=== PATIENT | female | born 1985 | race Caucasian/White ===

== ENCOUNTER 2020-07-08 09:16 | Emergency (ER) | payer OTHER, SELFPAY ==
[2020-07-08 09:20] VITALS: BP 171/87; PULSE 94; RESP 16; TEMP 36.7; O2SAT 99; BMI 34.6
--- NOTE | 2020-07-08 09:30 | ED.GENADULT ---
HPI - General Adult General Chief complaint: Abdominal Pain Stated complaint: massive cramps, abdomen/sternum Time Seen by Provider: 07/08/20 09:19 Source: patient Mode of arrival: Ambulatory Limitations: no limitations History of Present Illness HPI narrative: Patient is a 35-year-old female here for evaluation of lower abdominal cramping and vaginal bleeding and also epigastric abdominal pain and cramping. She states that the lower abdominal cramping and bleeding has been going on for several weeks if not months. She has been seen by her primary doctor. She is not on any control medication. She is scheduled to get an ultrasound completed tomorrow. The upper abdominal discomfort and cramping started a couple weeks ago. This happened after she was in another state for a and after eating some food. This pain has been fairly consistent. She states that her vaginal bleeding is more like menstrual cycles. She has never had a sexually transmitted disease nor she concerned about that now. No diarrhea. No urinary symptoms. Has been 1 time in the past which resulted in a . No other abdominal surgeries. She is here because the discomfort is getting worse. Related Data Previous Rx's Medication Instructions Recorded cephalexin 500 mg PO BID 7 Days #14 cap 07/08/20 sucralfate [Carafate] 1 g PO QACHS #60 tab 07/08/20 Allergies Allergy/AdvReac Type Severity Reaction Status Date / Time No Known Drug Allergies Allergy Verified 07/08/20 09:30 Review of Systems Constitutional Constitutional: Denies fatigue, Denies fever(s) and Denies headache(s) Eyes Eyes: Denies change in vision ENT Ears, Nose, Mouth, and Throat: Denies headache(s) and Denies sore throat Cardiovascular Cardiovascular: Denies chest pain and Denies dyspnea Respiratory Respiratory: Denies dyspnea Gastrointestinal Gastrointestinal: Reports abdominal pain, Denies change in bowel habits, Denies constipation, Denies diarrhea, Reports nausea and Denies vomiting Genitourinary Genitourinary: Denies dysuria Genitourinary: Reports abnormal vaginal bleeding, Denies dysuria and Reports vaginal discharge Musculoskeletal Musculoskeletal: Denies arthralgias and Denies myalgias Integumentary/Breasts Skin/Breast: Denies rash Neurologic Neurologic: Denies behavioral changes and Denies headache(s) Psychiatric Psychiatric: Denies behavioral changes Endocrine Endocrine: Denies fatigue Hematologic/Lymphatic On Anticoagulants: No Allergic/Immunologic Allergic/Immunologic: Denies urticaria Patient History Medical History Healthy adult Social History Smoking Status: Current every day smoker Exam Initial Vital Signs Initial Vital Signs: Vital Signs Temperature 98.0 F 07/08/20 09:20 Pulse Rate 94 H 07/08/20 09:20 Respiratory Rate 16 07/08/20 09:20 Blood Pressure 171/87 H 07/08/20 09:20 Pulse Oximetry 99 07/08/20 09:20 Const General: cooperative and comfortable Limitations: mental status not altered HENMT Head: normal to inspection and normocephalic Eyes General: appearance normal, both eyes and all related structures Chest Chest: No tenderness Resp Effort & Inspection: normal respiratory effort Auscultation: clear to auscultation bilaterally Cardio Rate: regular rate Rhythm: regular rhythm GI Inspection: non-distended Palpation: soft and tender (Generalized tenderness) Back/Spine/Pelvis Back: No CVA tenderness Skin Lesions: no lesions Rashes: no rashes Neuro General: patient alert and patient awake Cognition: normal cognition Speech: speech normal Extrem General: normal to inspection and capillary refill normal Psych Appearance: grossly normal and well kempt Course Orders Ordered: ED Orders 07/08/20 09:35 US abdomen limited Stat US pelvic complete Stat 07/08/20 09:50 Complete Blood Count AUTO DIFF Stat Comprehensive Metabolic Panel Stat Lipase Stat Test Serum,Qual Stat 07/08/20 11:33 Urine Culture Stat Urine Microscopic Stat Vital Signs Vital signs: Vital Signs - 8 hr 07/08/20 09:20 Temperature 98.0 F Pulse Rate 94 H Respiratory Rate 16 Blood Pressure 171/87 H Pulse Oximetry 99 Medical Decision Making Lab Data Lab results reviewed: Yes I reviewed the patient's lab results. Result diagrams: 07/08/20 09:50 07/08/20 09:50 Labs: Lab Results 07/08/20 07/08/20 07/08/20 Range/Units 09:50 09:50 09:50 WBC 12.6 H (4.5-11.0) X10^3/uL RBC 4.70 (4.0-5.2) X10^6/uL Hgb 14.8 (12.0-16.0) g/dL Hct 44.0 (36-46) % MCV 93.7 (80-100) fL MCH 31.5 (26-34) PG MCHC 33.6 (30-36) % RDW 13.4 (11.6-14.8) % Plt Count 199 (150-400) X10^3/uL Neut % (Auto) 81.3 H (50-75) % Lymph % (Auto) 12.1 L (25-40) % [place] % (Auto) 5.1 (3-14) % Eos % (Auto) 1.1 L (2-4) % Baso % (Auto) 0.4 (0-2) % Neut # (Auto) 55231 H (4687-8311) /uL Lymph # (Auto) 1500 (8452-9990) /uL [place] # (Auto) 600 (0-900) /uL Eos # (Auto) 100 (0-450) /uL Baso # (Auto) 100 (0-100) /uL Sodium 139 (137-145) mmol/L Potassium 4.2 (3.4-5.1) mmol/L Chloride 111 H (98-107) mmol/L Carbon Dioxide 20 L (22-32) mmol/L BUN 21 H (7-17) mg/dL Creatinine 0.66 (0.52-1.04) mg/dL Estimated GFR > 60.0 (>60) mL/min BUN/Creatinine Ratio 31.8 H (6-22) Glucose 115 H (70-100) mg/dL Calcium 9.6 (8.4-10.2) mg/dL Total Bilirubin 0.2 (0.2-1.3) mg/dL AST 24 (14-36) IU/L ALT 14 (<35) IU/L Alkaline Phosphatase 59 (38-126) U/L Total Protein 7.2 (6.3-8.2) g/dL Albumin 4.3 (3.5-5.0) g/dL Globulin 2.9 (1.7-4.1) g/dL Albumin/Globulin Ratio 1.5 (1.0-2.8) Lipase 66 (23-300) U/L Serum , Qual Negative (Negative) Urine RBC (0-5/HPF) Urine WBC (0-5/HPF) Ur Squamous Epith Cells (0-5/HPF) Urine Bacteria (None) Ur Culture Indicated? 07/08/20 Range/Units 11:33 WBC (4.5-11.0) X10^3/uL RBC (4.0-5.2) X10^6/uL Hgb (12.0-16.0) g/dL Hct (36-46) % MCV (80-100) fL MCH (26-34) PG MCHC (30-36) % RDW (11.6-14.8) % Plt Count (150-400) X10^3/uL Neut % (Auto) (50-75) % Lymph % (Auto) (25-40) % [place] % (Auto) (3-14) % Eos % (Auto) (2-4) % Baso % (Auto) (0-2) % Neut # (Auto) (9366-1376) /uL Lymph # (Auto) (8292-5338) /uL [place] # (Auto) (0-900) /uL Eos # (Auto) (0-450) /uL Baso # (Auto) (0-100) /uL Sodium (137-145) mmol/L Potassium (3.4-5.1) mmol/L Chloride (98-107) mmol/L Carbon Dioxide (22-32) mmol/L BUN (7-17) mg/dL Creatinine (0.52-1.04) mg/dL Estimated GFR (>60) mL/min BUN/Creatinine Ratio (6-22) Glucose (70-100) mg/dL Calcium (8.4-10.2) mg/dL Total Bilirubin (0.2-1.3) mg/dL AST (14-36) IU/L ALT (<35) IU/L Alkaline Phosphatase (38-126) U/L Total Protein (6.3-8.2) g/dL Albumin (3.5-5.0) g/dL Globulin (1.7-4.1) g/dL Albumin/Globulin Ratio (1.0-2.8) Lipase (23-300) U/L Serum , Qual (Negative) Urine RBC 30-100/hpf H (0-5/HPF) Urine WBC 0-1/hpf (0-5/HPF) Ur Squamous Epith Cells 1-5 /hpf (0-5/HPF) Urine Bacteria Many (>30) H (None) Ur Culture Indicated? Specimen cultured Urine Dip Bedside Urine Glucose Negative Bedside Urine Bilirubin - Negative Bedside Urine Ketone - Negative Urine Specific [place] 1.025 Bedside Urine Occult Blood +++ Bedside Urine pH 6.5 Bedside Urine Protein - Negative Bedside Urine Urobilinogen - Negative Bedside Urine Nitrite + Positive Bedside Urine Leukocytes - Negative Esterase Point of care testing: Urine Dip Bedside Urine Glucose Negative Bedside Urine Bilirubin - Negative Bedside Urine Ketone - Negative Urine Specific [place] 1.025 Bedside Urine Occult Blood +++ Bedside Urine pH 6.5 Bedside Urine Protein - Negative Bedside Urine Urobilinogen - Negative Bedside Urine Nitrite + Positive Bedside Urine Leukocytes - Negative Esterase Imaging Data Pelvic ultrasound: Radiologist's Impression: [address] [id number] ReportSigned Patient: Marybeth Cox SMR#: [id number]: [id number]:[id number]/Sex: 35 / FDate of Service: 07/08/20Loc: EDAccession Number: [id number] Procedure: US pelvic complete Ordering Provider: Mitul Mccullough D.O. PROCEDURE: US PELVIC COMPLETE INDICATIONS: CRAMPING/HEAVY BLEEDING TECHNIQUE: Real-time scanning was performed of the pelvic organs, with image documentation. Additional endovaginal scanning was necessary due to incomplete visualization of the adnexal and endometrial structures by transabdominal scanning. COMPARISON: None. FINDINGS: Uterus: Uterus is anteverted and normal in size at 5.1 x 6.0 x 10.1 cm. The endometrium measures 6.5 mm in combined thickness. There is a left anterior intramural 1.9 cm rounded fibroid, and a right anterior intramural 2.0 x 1.8 x 2.0 cm fibroid. Ovaries: The right ovary measures 3.2 x 3.5 x 1.7 cm and the left measures 4.3 x 2.7 x 1.8 cm. At the left ovary there is a somewhat tubular structure 4.1 cm long with a axial dimension of 1.3 x 1.7 cm. This is considered most likely hydrosalpinx on the left, but could represent an unusual manifestation of para ovarian cyst. On the right there is a 1.8 x 1.8 x 1.2 cm mildly echogenic presume parovarian cyst. Other: No pathologic free abdominal or pelvic fluid. IMPRESSION: 2 uterine fibroids are seen. An endometrial mass is not found. Hydrosalpinx appears present on the left, and a right small isoechoic para ovarian cyst appears present. The ovaries themselves show no evidence of torsion or mass lesion. Dictated by: Jamel Rodrigez M.D. on 07/08/2020 at 11:38 Approved by: Jamel Rodrigez M.D. on 07/08/2020 at 11:42 Abdominal ultrasound: Radiologist's Impression: [address] [id number] ReportSigned Patient: Marybeth Cox [facility]#: [id number]: 1985Acct:[id number]/Sex: 35 / FDate of Service: 07/08/20Loc: EDAccession Number: [id number] Procedure: US abdomen limited Ordering Provider: Mitul Mccullough D.O. PROCEDURE: US ABDOMEN LIMITED INDICATIONS: RIGHT UPPER QUADRANT/ABDOMEN PAIN TECHNIQUE: Real-time focused scanning was performed of the abdomen, with image documentation. COMPARISON: None. FINDINGS: The liver is normal in craniocaudad length of 4 teen 0.1 cm. Normal echotexture is present. The main portal vein is normal in caliber. The gallbladder is normal as are the bile ducts with common duct measuring 6.1 mm. The pancreas visualized is normal. IMPRESSION: Source of right upper quadrant pain is not identified. No sign of gallstones or biliary distension. Dictated by: Jamel Rodrigez M.D. on 07/08/2020 at 11:43 Approved by: Jamel Rodrigez M.D. on 07/08/2020 at 11:44 [facility] Narrative Medical decision making narrative: Patient does not have urinary symptoms but does have a nitrite positive urine and a leukocytosis. I feel given this that we ought to treat her for urinary tract infection. Her pelvic ultrasound does show uterine fibroids and ovarian cysts. She does have a follow-up with a asw/asuw tactical air controller to discuss further evaluation and treatment of this. She does have epigastric pain. Her LFTs and lipase and right upper quadrant ultrasound her all unremarkable. Her symptoms do seem to get worse with eating. I have low suspicion for an acute surgical issue. Higher suspicion that this is reflux disease. She has not any medications for this. Will start her on medications for this as well. She was given return precautions and follow-up instructions. She expressed understanding and agreement. Discharge Plan Departure Patient Disposition: Home Clinical Impression: Urinary tract infection, Abdominal pain, Fibroid, uterine Instructions: DI for Uterine Fibroids, DI for Urinary Tract Infection (UTI), DI for Abdominal Pain-Adult Activity Restrictions/Additional Instructions: Recommend that you keep all of your scheduled medical appointments especially with your asw/asuw tactical air controller provider. Take the medications as directed. A urine culture was pending at the time of your discharge. We will contact you if we need to change any antibiotics. Return to the emergency department for any new or worsening symptoms. Prescriptions: New cephalexin 500 mg capsule 500 mg PO BID 7 Days Qty: 14 RF: 0 sucralfate [Carafate] 1 gram tablet 1 g PO QACHS Qty: 60 RF: 0
--- NOTE | 2020-07-08 09:35 | DI.US.S_ITS ---
PROCEDURE: US ABDOMEN LIMITED INDICATIONS: RIGHT UPPER QUADRANT/ABDOMEN PAIN TECHNIQUE: Real-time focused scanning was performed of the abdomen, with image documentation. COMPARISON: None. FINDINGS: The liver is normal in craniocaudad length of 4 teen 0.1 cm. Normal echotexture is present. The main portal vein is normal in caliber. The gallbladder is normal as are the bile ducts with common duct measuring 6.1 mm. The pancreas visualized is normal. IMPRESSION: Source of right upper quadrant pain is not identified. No sign of gallstones or biliary distension. Dictated by: Jamel Rodrigez M.D. on 07/08/2020 at 11:43 Approved by: Jamel Rodrigez M.D. on 07/08/2020 at 11:44
--- NOTE | 2020-07-08 09:35 | DI.US.S_ITS ---
PROCEDURE: US PELVIC COMPLETE INDICATIONS: CRAMPING/HEAVY BLEEDING TECHNIQUE: Real-time scanning was performed of the pelvic organs, with image documentation. Additional endovaginal scanning was necessary due to incomplete visualization of the adnexal and endometrial structures by transabdominal scanning. COMPARISON: None. FINDINGS: Uterus: Uterus is anteverted and normal in size at 5.1 x 6.0 x 10.1 cm. The endometrium measures 6.5 mm in combined thickness. There is a left anterior intramural 1.9 cm rounded fibroid, and a right anterior intramural 2.0 x 1.8 x 2.0 cm fibroid. Ovaries: The right ovary measures 3.2 x 3.5 x 1.7 cm and the left measures 4.3 x 2.7 x 1.8 cm. At the left ovary there is a somewhat tubular structure 4.1 cm long with a axial dimension of 1.3 x 1.7 cm. This is considered most likely hydrosalpinx on the left, but could represent an unusual manifestation of para ovarian cyst. On the right there is a 1.8 x 1.8 x 1.2 cm mildly echogenic presume parovarian cyst. Other: No pathologic free abdominal or pelvic fluid. IMPRESSION: 2 uterine fibroids are seen. An endometrial mass is not found. Hydrosalpinx appears present on the left, and a right small isoechoic para ovarian cyst appears present. The ovaries themselves show no evidence of torsion or mass lesion. Dictated by: Jamel Rodrigez M.D. on 07/08/2020 at 11:38 Approved by: Jamel Rodrigez M.D. on 07/08/2020 at 11:42
--- NOTE | 2020-07-08 09:55 | PC.NURSE ---
able to draw labs,unable to advance iv catheter.
[2020-07-08 10:01] LABS: Add Manual Diff / Slide Review NO; Basophils Absolute Auto 100 /uL (0-100); Basophils Percent Auto 0.4 % (0-2); Eosinophils Absolute Auto 100 /uL (0-450); Eosinophils Percent Auto 1.1 % (2-4); Hemoglobin 14.8 g/dL (12.0-16.0); Lymphocytes Absolute Auto 1500 /uL (1100-4500); Lymphocytes Percent Auto 12.1 % (25-40); Mean Corpuscular HGB Conc 33.6 % (30-36); Mean Corpuscular Hemoglobin 31.5 PG (26-34); Mean Corpuscular Volume 93.7 fL (80-100); Monocytes Absolute Auto 600 /uL (0-900); Monocytes Percent Auto 5.1 % (3-14); Neutrophils Absolute Auto 10300 /uL (1500-7000); Neutrophils Percent Auto 81.3 % (50-75); Platelet Count 199 X10^3/uL (150-400); Red Cell Distribution Width 13.4 % (11.6-14.8); White Blood Cell Count 12.6 X10^3/uL (4.5-11.0)
[2020-07-08 10:37] LABS: Alanine Aminotransferase 14 IU/L (<35); Albumin 4.3 g/dL (3.5-5.0); Albumin Globulin Ratio 1.5 (1.0-2.8); Alkaline Phosphatase 59 U/L (38-126); Aspartate Aminotransferase 24 IU/L (14-36); BUN Creatinine Ratio 31.8 (6-22); Bilirubin Total 0.2 mg/dL (0.2-1.3); Blood Urea Nitrogen 21 mg/dL (7-17); Calcium 9.6 mg/dL (8.4-10.2); Carbon Dioxide 20 mmol/L (22-32); Chloride 111 mmol/L (98-107); Estimated Glomerular Filt Rate > 60.0 mL/min (>60); Globulin 2.9 g/dL (1.7-4.1); Glucose 115 mg/dL (70-100); HEMOLYSIS < 15 (0-50); Lipase 66 U/L (23-300); Potassium 4.2 mmol/L (3.4-5.1); Sodium 139 mmol/L (137-145); Total Protein 7.2 g/dL (6.3-8.2)
[2020-07-08 10:43] LABS: Pregnancy Test Serum,Qual Negative (Negative)
[2020-07-08 11:45] VITALS: BP 107/68; PULSE 100; RESP 18; O2SAT 98
[2020-07-08 12:14] LABS: Bacteria Urine Many (>30); Culture Indicated Urine Specimen Cultured; RBC Urine 30-100/HPF (0-5/HPF); Squamous Epithelial Cell Urine 1-5 /HPF (0-5/HPF); WBC Urine 0-1/HPF (0-5/HPF)
[2020-07-08 12:45] VITALS: BP 118/90; PULSE 94; RESP 18; O2SAT 99
== END 2020-07-08 12:50 | disposition home or self-care (01) ==
PROVIDERS: Emergency Provider Emergency Medicine
DX: D25.1 Intramural leiomyoma of uterus (principal); N39.0 Urinary tract infection, site not specified; R11.0 Nausea; N89.8 Other specified noninflammatory disorders of vagina; R10.9 Unspecified abdominal pain
CPT/HCPCS: 36415; 76705; 76830; 76856; 80053; 81003; 81015; 83690; 84703; 85025; 87077; 87086; 87186; 99284

== ENCOUNTER → 2021-04-30 08:15 | Outpatient (CLI) | payer OTHER, SELFPAY ==
[2021-04-30 08:54] LABS: COVID19 -Nasal RAPID Negative (Negative)
== END ==
PROVIDERS: Visit Provider Obstetrics & Gynecology
DX: Z01.812 Encounter for preprocedural laboratory examination (principal); Z20.822 Contact with and (suspected) exposure to COVID-19
CPT/HCPCS: 87635

== ENCOUNTER 2021-05-01 08:45 | Day surgery (SDC) | payer OTHER, SELFPAY ==
[2021-04-29 13:35] VITALS: BMI 32.9
[2021-05-01] VITALS (10 sets, daily range): BP systolic 106–123; BP diastolic 50–85; PULSE 72–96; RESP 13–20; TEMP 36.1–37; O2SAT 92–99; BMI 32.9
--- NOTE | 2021-05-01 | PATH_ITS ---
[facility] Accession Number: [id number] . 01 Material submitted: . uterus - UTERUS AND BILATERAL FALLOPIAN TUBES . 02 Diagnosis: A. Uterus and Bilateral Fallopian Tubes, Hysterectomy and Bilateral Salpingectomy: Myometrium with multiple leiomyomas (up to 2.2 cm). Proliferative phase endometrium. 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 No evidence of endometrioid intraepithelial neoplasia, dysplasia, or malignancy. . COMMENT: Within one fallopian tube, focal features raised the possibility for endometriosis; ancillary studies are non-conclusive. In the presence of salpingitis isthmica nodosa, it is difficult to distinguish this entity from endometriosis and from lodged/shedded endometrial tissue in the fallopian tube. Clinical correlation is necessary. [facility] 05/06/2021 1340 Local . 02 Electronically signed: . Fela Lehman MD, Pathologist NPI- [id number] . 01 Gross description: . 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 Some putative attached and detached fallopian tube segments are seen; however, no fimbriae are identified. Fragmented surfaces of the morcellated uterus show numerous pale chavez whorled nodules measuring up to 2.2 cm in greatest dimension. Where seen, the endometrial mucosa measures up to 2 mm in thickness. No other masses or lesions are identified. No cervix is grossly identified. Automobile Sales Consultant sections are submitted as follows. . A1 - Endometrial cavity. A2 - Endometrium with adjacent probable leiomyoma. A3 - Probable leiomyoma. A4 - Additional probable leiomyomata. A5 - Putative fallopian tube cross-sections. A6 - Putative fallopian tube cross-sections. ([id number]) /MRV 05/04/2021 1149 Local . 02 Microscopic: . A CD10 immunostain is performed on block A5 in order to assess an area within the fallopian tube for endometriosis, with appropriately staining external controls. The area of interest is positive for CD10, however, this finding remains non-diagnostic, as non-specific staining is seen around portions of normal fallopian tube epithelium. . * This test was developed and its performance characteristics determined by [facility]. It has not been cleared or approved by the U.S. Food and Drug Administration. The FDA has determined that such clearance or approval is not necessary. This test is used for clinical purposes. It should not be regarded as investigational or for research. . 02 Pathologist provided ICD-10: D25.9 . 02 CPT . 571321, Z23841 Specimen Comment: A courtesy copy of this report has been sent to [facility] Performed at: 01 [facility] [address] [address], [place], [place] [id number] MD Valentin Newman MD Phone: [phone] Performed at: 02 [facility] [address] [place] [id number] MD Razia Hatch MD Phone: [phone]
[2021-05-01] MEDS: LACTATED RINGERS 1,000 ML 42 ML IV ×2 (09:27→12:00)
--- NOTE | 2021-05-01 09:28 | PM.PREOP ---
Pre-operative Note COVID-19 COVID-19 status: Negative Result date/Date tested (Pos, Neg/Pending): 04/30/21 Criteria for continued procedure: Non-surgical alternatives not available or appropriate per current SOC Interval Note History & Physical reviewed/Exam performed by Physician: Yes Changes to H&P: No
[2021-05-01] MEDS: CEFAZOLIN 2 GM/20 ML SYRINGE IV (10:10)
--- NOTE | 2021-05-01 10:44 | SUR.OPER ---
Lithotomy on padded OR bed. [place] Pad Positioner under torso. Head on pillow, arms padded and tucked at sides. Legs secured in padded yellow fins stirrups.
[2021-05-01] MEDS: BUPIVACAINE 0.5% (PF) 30 ML, EPINEPHrine 0.15 MG INJ (10:54)
[2021-05-01] MEDS: ROPIVACAINE 0.2% PF 2 MG/ML 10ML AMP 20 ML INJ ×2 (11:54→12:04)
--- NOTE | 2021-05-01 12:26 | PM.GYNOP.1 ---
Operative Date/Time/Diagnoses Date of procedure: 05/01/21 Time of procedure: 10:15 Pre-op diagnosis: Menometrorrhagia Uterine Fibroids Post-op diagnosis: other (Same as above; Extensive pelvic peritoneal adhesions, Bilateral hydrosalpinx) Procedure & Clinicians Procedure: Procedures Operation Date: 05/01/21 09:45 Actual Procedure Side Surgeon p Laparoscopic Supracervical Hysterectomy with bilateral salpingectomies, cystoscopy Allen Khoury MD Indications: Marybeth is a 35-year-old G 2 , LMP 03/11/2021 and ongoing who presents to discuss options for treatment of her nearly 4 year history of chaotic and disruptive menses.? Her history in this regard is exceptionally well documented in the medical records from [facility] in encounters from 06/2020 - 07/2020. In July 2020 she was counseled re: treatment options by [facility] [employer] [employer] and declined Mirena IUD but instead expressed a strong desire for definitive resolution of her MMR via hysterectomy.? She is finished with childbearing? The patient claims to have had a pap 3 years ago but no records support that claim.? The patient is a daily cigarette smoker therefore OC's have never been appropriate. She is not currently using contraception but sexual activity is only sporadic due to her frequent episodes of vaginal bleeding.? Pelvic US performed at [facility] on 07/08/2020 shows a slightly enlarged uterus with two anterior intramural myomas and normal ovaries bilaterally with small paraovarian cystic structures of uncertain consequence. [employer] ROS notable for heavy, irregular episodes of vaginal bleeding with clots, night-time overflows, pelvic heaviness, severe cramping, and other symptoms which are adversely affecting her life in many ways.Options for treatment reviewed again with the patient. She again declined the option of Mirena.? Endometrial ablation was offered and declined because no assurance of 100% efficacy could be offered and instead she wants to proceed with hysterectomy after counselling re alternatives, risks, benefits, and potential complications.? She is currently scheduled for the performance of a total laparoscopic hysterectomy with bilateral salpingectomy in the [facility] on 03/25/2021 and she presents today for her scheduled surgery. Surgeon: Allen Khoury Tonguer: Eleanor Arellano Anesthesia Type: General Operative Notes Findings: The uterus is upper limits of normal size and myomatous. The anterior cul-de-sac demonstrates changes consistent with prior section. Both fallopian tubes demonstrate niall-tubal adhesions and hydrosalpinx consistent with prior pelvic inflammatory disease. Dense tubo-ovarian adhesions on the left extending down into the cul-de-sac on the left pelvic sidewall and affecting the distal-most parametrial tissues on the left which precluded performance of TLH and laparoscopic supracervical hysterectomy performed instead for reasons of patient's safety. Dense and filmy adhesions also involved the posterior cul-de-sac. The remainder the abdomen and upper abdomen were normal to laparoscopic inspection. Following completion of the case cystoscopy showed normal mucosa throughout the bladder and vigorous spill of clear urine from each ureteral meatus Closure Type: primary Specimen(s): left tube, right tube and uterus Estimated blood loss (mL): 75 Blood products transfused: none Procedure in detail: With the patient under satisfactory general endotracheal anesthesia in the modified dorsal lithotomy position, the perineum, vagina, and abdomen were prepped and draped in the usual manner for TLH. A pre-surgical safety time-out was then taken in accordance with [facility] OR protocols. So catheter was inserted in the bladder and speculum inserted vaginally. The cervix was visualized and the endocervical canal dilated so as to permit introduction of a VCare manipulator with small cup. Attention was then turned to the umbilicus which was infiltrated with 0.5% Marcaine with epinephrine. A 5 mm vertical umbilical incision was made and the varies needle was used to insufflate the abdominal cavity. Once insufflated 5 mm trocar and sleeve was placed through the umbilical incision and 2 additional 5 mm ports were placed in the right and left mid quadrant. Using a 3 puncture technique the pelvis was visualized with the findings as noted previously. Sharp and blunt dissection was used to free of the distal tube on the right-hand side and it was from the ovary using the PK device. The dissection was carried across the mesosalpinx to the level of the round ligament on the right side which was coagulated and divided with the PK. The device was then used to dissect down lateral to the uterus on the right-hand side with lysis of the adhesions in the posterior cul-de-sac on the right side as well. Once the level of the bladder reflection was reached bladder flap was created starting on the right-hand side and the ascending uterine vessels coagulated and divided with the PK. Attention was then turned to the left adnexa which was much more scarred. The fallopian tube could not be from the ovary on the left-hand side because it ovary could not be visualized initially. Instead the proximal-most fallopian tube was coagulated and divided with PK device and the dissection was carried out lateral to the uterus on the left side all the way down to the level of the uterine vessels. Dense adhesions were encountered however and it appeared the ureter on the left side was drawn toward the cervix at that point. It was felt that dissection of the ureter beyond that point would be hazardous and unnecessary if a supracervical hysterectomy was performed instead of the TLH as planned and accordingly once sufficient skeletonization on both sides had been accomplished, a Violeta loop was utilized to amputate the corpus at the level of the upper endocervical canal. The endocervical canal was then coagulated with the PK device and hemostasis was excellent. Attention was then turned again to the left adnexa and the distal fallopian tube could then be identified and from the ovary on the left. The mesosalpinx was then coagulated and divided with the left fallopian tube fully excised. Both ovaries remain in-situ and the remainder the adhesions in the posterior cul-de-sac were lysed. A 4 cm mini-laparotomy was performed along the line of her prior scar and dissected down to the fascia. A 12 mm port was then inserted through the mini-laparotomy incision and an Endo-Catch bag was introduced so as to retrieve the uterus and fallopian tube specimens. A small Sy was then placed within the Endo-Catch bag and the specimen morcellated through the Sy. The fascia of the mini-laparotomy was then closed with 0 Vicryl in a running stitch and the abdomen was reinsufflated. Pelvis was reinspected with no areas of abnormality or bleeding noted and 20 cc of ropivacaine were then placed in the cul-de-sac. The pneumoperitoneum was then vented and the laparoscopic port incisions closed with 4-0 Monocryl using inverted interrupted stitches. The mini-laparotomy incision was closed in a similar manner and skin glue was placed on all incisions. Appropriate dressings were then applied and attention was turned to cystoscopy. A 70 degree cystoscope was then placed in the bladder and the bladder fully visualize 360?. Vigorous spillage of clear urine was seen coming from each ureteral orifice. The scope was then removed from the bladder and the patient having tolerated the procedure well was awakened from anesthesia transferred to PACU for a period of observation and recovery. Complications: none Post-operative Condition: stable Disposition: PACU Plan for aftercare: Routine postoperative care with follow-up appointment in 2 weeks.
--- NOTE | 2021-05-01 12:38 | SUR.PHASEI ---
Pt arrived, airway self maintained, 02 nasal cannula added.
--- NOTE | 2021-05-01 13:31 | SUR.PHASEI ---
Stable PACU stay, to OPD.
== END 2021-05-01 13:54 | disposition home or self-care (01) ==
LOC: OR 08:48 → AC 08:51
PROVIDERS: Referring Provider Obstetrics & Gynecology; Visit Provider Obstetrics & Gynecology
PROC: 0UT94ZL Resection of Uterus, Supracervical, Percutaneous Endoscopic Approach (ICD-10-PCS; CPT 58542; principal; 2021-05-01 09:45)
DX: D25.1 Intramural leiomyoma of uterus (principal); N70.11 Chronic salpingitis; N73.6 Female pelvic peritoneal adhesions (postinfective); F17.210 Nicotine dependence, cigarettes, uncomplicated; E66.9 Obesity, unspecified; Z68.32 Body mass index [BMI] 32.0-32.9, adult
CPT/HCPCS: 58542; J0171; J0690; J1100; J1170; J1885; J2250; J2405; J2704; J2795; J3010

== ENCOUNTER 2022-01-21 05:23 | Emergency (ER) | payer OTHER, SELFPAY ==
[2022-01-21 05:32] VITALS: BP 122/88; PULSE 100; RESP 18; TEMP 36.4; O2SAT 99; BMI 33.9
[2022-01-21 06:06] LABS: Add Manual Diff / Slide Review NO; Alanine Aminotransferase 18 IU/L (<35); Albumin 4.2 g/dL (3.5-5.0); Albumin Globulin Ratio 1.3 (1.0-2.8); Alkaline Phosphatase 54 U/L (38-126); Aspartate Aminotransferase 18 IU/L (14-36); BUN Creatinine Ratio 30.2 (6-22); Basophils Absolute Auto 0 /uL (0-100); Basophils Percent Auto 0.3 % (0-2); Bilirubin Total 0.4 mg/dL (0.2-1.3); Blood Urea Nitrogen 19 mg/dL (7-17); Carbon Dioxide 24 mmol/L (22-32); Chloride 106 mmol/L (98-107); Eosinophils Absolute Auto 100 /uL (0-450); Eosinophils Percent Auto 1.3 % (2-4); Estimated Glomerular Filt Rate > 60 mL/min (>60); Globulin 3.3 g/dL (1.7-4.1); Glucose 101 mg/dL (70-100); HEMOLYSIS < 15 (0-50); Hematocrit 43.6 % (36-46); Hemoglobin 14.9 g/dL (12.0-16.0); Lipase 39 U/L (23-300); Lymphocytes Absolute Auto 1000 /uL (1100-4500); Lymphocytes Percent Auto 20.8 % (25-40); Mean Corpuscular HGB Conc 34.3 % (30-36); Mean Corpuscular Volume 93.4 fL (80-100); Monocytes Absolute Auto 500 /uL (0-900); Monocytes Percent Auto 10.4 % (3-14); Neutrophils Absolute Auto 3300 /uL (1500-7000); Neutrophils Percent Auto 67.2 % (50-75); Platelet Count 165 X10^3/uL (150-400); Potassium 3.9 mmol/L (3.4-5.1); Red Blood Cell Count 4.67 X10^6/uL (4.0-5.2); Red Cell Distribution Width 12.8 % (11.6-14.8); Sodium 140 mmol/L (137-145); Total Protein 7.5 g/dL (6.3-8.2); White Blood Cell Count 4.9 X10^3/uL (4.5-11.0)
--- NOTE | 2022-01-21 06:19 | DI.CT.S_ITS ---
PROCEDURE: CT ABDOMEN PELVIS W CON INDICATIONS: Upper abd pain TECHNIQUE: After the administration of IV contrast, axial sections were acquired from the lung bases to the pubic symphysis. Coronal and sagittal reformats were performed. For radiation dose reduction, the following was used: automated exposure control, adjustment of mA and/or kV according to patient size. COMPARISON: [facility], ABDOMEN LIMITED, 07/08/2020, 10:01. [facility], PELVIC COMPLETE, 07/08/2020, 10:10. FINDINGS: Image quality: Excellent. Lung bases: Unremarkable. Tiny hiatal hernia. Heart: No significant findings. ABDOMEN: Liver: Several hepatic hypodensities are most likely cysts. Mild hepatic steatosis. Gallbladder: Unremarkable. Biliary ducts: Unremarkable. Pancreas: Unremarkable. Spleen: Unremarkable. Adrenal Glands: Bilateral small adrenal nodules measuring 1 cm. Kidneys and Ureters: There is a 2.4 x 3.5 cm solid mass in the lateral aspect of the superior pole of the right kidney, suspicious for renal cell carcinoma. No stones or hydronephrosis. Stomach and Bowel: Stomach, small bowel loops, and colon are unremarkable. Peritoneum: No abnormal intraperitoneal fluid. No free air. Ventral Wall: There is a small fat containing umbilical hernia. Abdominal Nodes: No retroperitoneal or mesenteric adenopathy by size criteria. There is a 0.7 cm retrocaval lymph node, within normal limits by size criteria. Vessels: Aorta and inferior vena cava are normal in size. PELVIS: Pelvic Organs: Reportedly, the patient has a history of hysterectomy. Prominent soft tissue in pelvis at midline is probably the remnant uterus/cervix. Ovaries are grossly normal. Bladder: Unremarkable. Pelvic Nodes: No enlarged lymph nodes. Miscellaneous: No inguinal hernias are seen. Bones: Unremarkable. IMPRESSION: 1. A 2.4 x 3.5 cm solid mass in the superior pole of the right kidney, suspicious for renal cell carcinoma. 2. Bilateral adrenal nodules. Adrenal protocol MRI or CT is suggested for follow-up evaluation. 3. Small hypodense nodules in liver are most likely cysts. 2. No lymphadenopathy in abdomen or pelvis. 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 Dictated by: Fawn Larson M.D. on 01/21/2022 at 8:25 Approved by: Fawn Larson M.D. on 01/21/2022 at 8:35
--- NOTE | 2022-01-21 06:21 | ED.ABDPAIN ---
HPI - Abdominal Pain <Arsalan Pierson MD - Last Filed: 01/30/22 08:32> General Chief Complaint: Abdominal Pain Stated Complaint: abd pain and toothache Time Seen by Provider: 01/21/22 06:10 Source: patient Mode of arrival: Ambulatory History of Present Illness HPI narrative: Patient brought in by a friend. Complaints 4 days of constant epigastric right upper quadrant pain. Sharp burning crampy achy. Does not radiate. Worse especially when trying to eat. Causes pain and vomiting. Patient still has her gallbladder. Denies . In addition patient complains of ongoing tooth pain for the past 1 month in the bottom left posterior tooth/molar. Patient has known history of dental caries to this tooth. Patient does smoke. Has appointment February 11 see tenderness. No trouble swallowing. No jaw swelling. No fever. Abdominal pain has been gone for 4 days. Related Data Home Medications Medication Instructions Recorded Confirmed ibuprofen 200 mg tablet 200 mg PO PRN PRN Pain (Scale 05/01/21 06/11/21 Score 1-3) Previous Rx's Medication Instructions Recorded tramadol 50 mg tablet 100 mg PO Q6H PRN pain #30 tabs 05/01/21 famotidine 40 mg tablet (Pepcid) 40 mg PO DAILY #30 tabs 01/21/22 sucralfate 1 gram tablet (Carafate) 1 g PO QAC #20 tabs 01/21/22 Allergies Allergy/AdvReac Type Severity Reaction Status Date / Time No Known Drug Allergies Allergy Verified 01/21/22 05:31 Review of Systems <Arsalan Pierson MD - Last Filed: 01/30/22 08:32> Review of Systems Narrative: GENERAL: Denies chills, fatigue, malaise, fever, sweats. HEENT: Denies sinus pain, ear pain, sore throat, positive dental pain RESPIRATORY: Denies dyspnea, cough CARDIOVASCULAR: Denies chest pain, palpitations GASTROINTESTINAL: Positive nausea, vomiting, abdominal pain : Denies dysuria, frequency, hematuria MUSCULOSKELETAL: denies muscle or bony pain SKIN: Denies rash, skin lesions NEUROLOGIC: Denies weakness, numbness ROS Unobtainable: All systems reviewed & are unremarkable except as noted in HPI and below Patient History <Arsalan Pierson MD - Last Filed: 01/30/22 08:32> Medical History Dysmenorrhea Healthy adult Intramural uterine fibroid Menometrorrhagia Severe dysmenorrhea Surgical History History of Social History household members: family Smoking Status: Current every day smoker Smoking Status: Current every day smoker alcohol intake frequency: holidays/special occasions only Substance Use Type: does not use Exam <Arsalan Pierson MD - Last Filed: 01/30/22 08:32> Narrative Exam Narrative: GENERAL: in no distress, not toxic not dyspneic HEAD: Normocephalic. EYES: Pupils equal round No scleral icterus. ENT: Mucous membranes moist. Tooth 17. On the left lower jaw on exam has extensive dental caries anteriorly. There is no gum erythema edema or palpable abscess. No jaw swelling. NECK: Trachea midline. CARDIOVASCULAR: Regular rate and rhythm without murmurs RESPIRATORY: Clear to auscultation. Breath sounds equal bilaterally. No wheezes, rales, or rhonchi. GASTROINTESTINAL: Abdomen soft, reproducible epigastric tenderness, bowel sounds are present. No peritoneal signs. Also there is right upper quadrant tenderness, positive Fan sign. No CVA tenderness. EXTREMITIES: No gross deformities. BACK: No flank tenderness. NEURO: AOx4. SKIN: Warm and dry PSYCH: Not anxious, is cooperative Initial Vital Signs Initial Vital Signs: Vital Signs Temperature 97.5 F L 01/21/22 05:32 Pulse Rate 100 H 01/21/22 05:32 Respiratory Rate 18 01/21/22 05:32 Blood Pressure 122/88 01/21/22 05:32 Pulse Oximetry 99 01/21/22 05:32 Oxygen Delivery Method 01/21/22 05:32 <Frannie Valdez DO - Last Filed: 01/21/22 18:44> Initial Vital Signs Initial Vital Signs: Vital Signs Temperature 97.5 F L 01/21/22 05:32 Pulse Rate 100 H 01/21/22 05:32 Respiratory Rate 18 01/21/22 05:32 Blood Pressure 122/88 01/21/22 05:32 Pulse Oximetry 99 01/21/22 05:32 Oxygen Delivery Method 01/21/22 05:32 Course <Arsalan Pierson MD - Last Filed: 01/30/22 08:32> Course Course Narrative: January 21, 2022 at 7:00 a.m., sign out to Dr. Valdez, CT scan imaging results are pending. Orders Ordered: Discontinued Medications Sodium Chloride (Normal Saline 0.9%) 1,000 mls @ 1,000 mls/hr IV BOLUS ONE Stop: 01/21/22 07:18 Last Infusion: 01/21/22 08:25 Dose: 0 mls/hr Documented By: Admin: 01/21/22 06:33 Dose: 1,000 mls/hr Documented By: KEVIN Morphine Sulfate (Morphine 4 Mg/Ml Inj) 4 mg IV NOW ONE Stop: 01/21/22 06:20 Last Admin: 01/21/22 06:33 Dose: 4 mg Documented By: KEVIN Ondansetron HCl (Ondansetron 4 Mg/2 Ml Inj) 4 mg IV NOW ONE Stop: 01/21/22 06:20 Last Admin: 01/21/22 06:33 Dose: 4 mg Documented By: KEVIN Vital Signs Vital signs: Vital Signs - 8 hr 01/21/22 05:32 Temperature 97.5 F L Pulse Rate 100 H Respiratory Rate 18 Blood Pressure 122/88 Pulse Oximetry 99 Oxygen Delivery Method Room Air <Frannie Valdez DO - Last Filed: 01/21/22 18:44> Orders Ordered: Discontinued Medications Sodium Chloride (Normal Saline 0.9%) 1,000 mls @ 1,000 mls/hr IV BOLUS ONE Stop: 01/21/22 07:18 Last Infusion: 01/21/22 08:25 Dose: 0 mls/hr Documented By: Admin: 01/21/22 06:33 Dose: 1,000 mls/hr Documented By: KEVIN Morphine Sulfate (Morphine 4 Mg/Ml Inj) 4 mg IV NOW ONE Stop: 01/21/22 06:20 Last Admin: 01/21/22 06:33 Dose: 4 mg Documented By: KEVIN Ondansetron HCl (Ondansetron 4 Mg/2 Ml Inj) 4 mg IV NOW ONE Stop: 01/21/22 06:20 Last Admin: 01/21/22 06:33 Dose: 4 mg Documented By: KEVIN Vital Signs Vital signs: Vital Signs - 8 hr 11/17/22 05:32 Temperature 97.5 F L Pulse Rate 100 H Respiratory Rate 18 Blood Pressure 122/88 Pulse Oximetry 99 Oxygen Delivery Method Room Air MDM - Abdominal Pain <Arsalan Pierson MD - Last Filed: 01/30/22 08:32> Lab Data Result diagrams: 01/21/22 05:45 01/21/22 05:45 Labs: Lab Results 01/21/22 01/21/22 01/21/22 Range/Units 05:45 05:45 05:45 WBC 4.9 (4.5-11.0) X10^3/uL RBC 4.67 (4.0-5.2) X10^6/uL Hgb 14.9 (12.0-16.0) g/dL Hct 43.6 (36-46) % MCV 93.4 (80-100) fL MCH 32.0 (26-34) PG MCHC 34.3 (30-36) % RDW 12.8 (11.6-14.8) % Plt Count 165 (150-400) X10^3/uL Neut % (Auto) 67.2 (50-75) % Lymph % (Auto) 20.8 L (25-40) % [place] % (Auto) 10.4 (3-14) % Eos % (Auto) 1.3 L (2-4) % Baso % (Auto) 0.3 (0-2) % Neut # (Auto) 3300 (7402-7703) /uL Lymph # (Auto) 1000 L (5737-0835) /uL [place] # (Auto) 500 (0-900) /uL Eos # (Auto) 100 (0-450) /uL Baso # (Auto) 0 (0-100) /uL Sodium 140 (137-145) mmol/L Potassium 3.9 (3.4-5.1) mmol/L Chloride 106 (98-107) mmol/L Carbon Dioxide 24 (22-32) mmol/L BUN 19 H (7-17) mg/dL Creatinine 0.63 (0.52-1.04) mg/dL Estimated GFR > 60 (>60) mL/min BUN/Creatinine Ratio 30.2 H (6-22) Glucose 101 H (70-100) mg/dL Calcium 9.0 (8.4-10.2) mg/dL Total Bilirubin 0.4 (0.2-1.3) mg/dL AST 18 (14-36) IU/L ALT 18 (<35) IU/L Alkaline Phosphatase 54 (38-126) U/L Total Protein 7.5 (6.3-8.2) g/dL Albumin 4.2 (3.5-5.0) g/dL Globulin 3.3 (1.7-4.1) g/dL Albumin/Globulin Ratio 1.3 (1.0-2.8) Lipase 39 (23-300) U/L Serum , Qual Negative (Negative) Urine RBC (0-5/HPF) Urine WBC (0-5/HPF) Ur Squamous Epith Cells (0-5/HPF) Urine Bacteria (None) Ur Culture Indicated? 01/21/22 Range/Units 08:25 WBC (4.5-11.0) X10^3/uL RBC (4.0-5.2) X10^6/uL Hgb (12.0-16.0) g/dL Hct (36-46) % MCV (80-100) fL MCH (26-34) PG MCHC (30-36) % RDW (11.6-14.8) % Plt Count (150-400) X10^3/uL Neut % (Auto) (50-75) % Lymph % (Auto) (25-40) % [place] % (Auto) (3-14) % Eos % (Auto) (2-4) % Baso % (Auto) (0-2) % Neut # (Auto) (5343-8543) /uL Lymph # (Auto) (8232-1150) /uL [place] # (Auto) (0-900) /uL Eos # (Auto) (0-450) /uL Baso # (Auto) (0-100) /uL Sodium (137-145) mmol/L Potassium (3.4-5.1) mmol/L Chloride (98-107) mmol/L Carbon Dioxide (22-32) mmol/L BUN (7-17) mg/dL Creatinine (0.52-1.04) mg/dL Estimated GFR (>60) mL/min BUN/Creatinine Ratio (6-22) Glucose (70-100) mg/dL Calcium (8.4-10.2) mg/dL Total Bilirubin (0.2-1.3) mg/dL AST (14-36) IU/L ALT (<35) IU/L Alkaline Phosphatase (38-126) U/L Total Protein (6.3-8.2) g/dL Albumin (3.5-5.0) g/dL Globulin (1.7-4.1) g/dL Albumin/Globulin Ratio (1.0-2.8) Lipase (23-300) U/L Serum , Qual (Negative) Urine RBC 0-1/hpf D (0-5/HPF) Urine WBC 0-1/hpf (0-5/HPF) Ur Squamous Epith Cells 5-10 /hpf H (0-5/HPF) Urine Bacteria Few (2-10) H (None) Ur Culture Indicated? Cult not indicated Point of care testing: Urine Dip Bedside Urine Glucose Negative Bedside Urine Bilirubin - Negative Bedside Urine Ketone +/- 5 Urine Specific Elizabeth 1.010 Bedside Urine Occult Blood +/- Bedside Urine pH 6.0 Bedside Urine Protein - Negative Bedside Urine Urobilinogen - Negative Bedside Urine Nitrite - Negative Bedside Urine Leukocytes - Negative Esterase <Frannie Valdez, DO - Last Filed: 01/21/22 18:44> Lab Data Labs: Lab Results 01/21/22 01/21/22 01/21/22 Range/Units 05:45 05:45 05:45 WBC 4.9 (4.5-11.0) X10^3/uL RBC 4.67 (4.0-5.2) X10^6/uL Hgb 14.9 (12.0-16.0) g/dL Hct 43.6 (36-46) % MCV 93.4 (80-100) fL MCH 32.0 (26-34) PG MCHC 34.3 (30-36) % RDW 12.8 (11.6-14.8) % Plt Count 165 (150-400) X10^3/uL Neut % (Auto) 67.2 (50-75) % Lymph % (Auto) 20.8 L (25-40) % [place] % (Auto) 10.4 (3-14) % Eos % (Auto) 1.3 L (2-4) % Baso % (Auto) 0.3 (0-2) % Neut # (Auto) 3300 (8775-1119) /uL Lymph # (Auto) 1000 L (1030-4501) /uL [place] # (Auto) 500 (0-900) /uL Eos # (Auto) 100 (0-450) /uL Baso # (Auto) 0 (0-100) /uL Sodium 140 (137-145) mmol/L Potassium 3.9 (3.4-5.1) mmol/L Chloride 106 (98-107) mmol/L Carbon Dioxide 24 (22-32) mmol/L BUN 19 H (7-17) mg/dL Creatinine 0.63 (0.52-1.04) mg/dL Estimated GFR > 60 (>60) mL/min BUN/Creatinine Ratio 30.2 H (6-22) Glucose 101 H (70-100) mg/dL Calcium 9.0 (8.4-10.2) mg/dL Total Bilirubin 0.4 (0.2-1.3) mg/dL AST 18 (14-36) IU/L ALT 18 (<35) IU/L Alkaline Phosphatase 54 (38-126) U/L Total Protein 7.5 (6.3-8.2) g/dL Albumin 4.2 (3.5-5.0) g/dL Globulin 3.3 (1.7-4.1) g/dL Albumin/Globulin Ratio 1.3 (1.0-2.8) Lipase 39 (23-300) U/L Serum , Qual Negative (Negative) Urine RBC (0-5/HPF) Urine WBC (0-5/HPF) Ur Squamous Epith Cells (0-5/HPF) Urine Bacteria (None) Ur Culture Indicated? 01/21/22 Range/Units 08:25 WBC (4.5-11.0) X10^3/uL RBC (4.0-5.2) X10^6/uL Hgb (12.0-16.0) g/dL Hct (36-46) % MCV (80-100) fL MCH (26-34) PG MCHC (30-36) % RDW (11.6-14.8) % Plt Count (150-400) X10^3/uL Neut % (Auto) (50-75) % Lymph % (Auto) (25-40) % [place] % (Auto) (3-14) % Eos % (Auto) (2-4) % Baso % (Auto) (0-2) % Neut # (Auto) (3243-9768) /uL Lymph # (Auto) (4675-9901) /uL [place] # (Auto) (0-900) /uL Eos # (Auto) (0-450) /uL Baso # (Auto) (0-100) /uL Sodium (137-145) mmol/L Potassium (3.4-5.1) mmol/L Chloride (98-107) mmol/L Carbon Dioxide (22-32) mmol/L BUN (7-17) mg/dL Creatinine (0.52-1.04) mg/dL Estimated GFR (>60) mL/min BUN/Creatinine Ratio (6-22) Glucose (70-100) mg/dL Calcium (8.4-10.2) mg/dL Total Bilirubin (0.2-1.3) mg/dL AST (14-36) IU/L ALT (<35) IU/L Alkaline Phosphatase (38-126) U/L Total Protein (6.3-8.2) g/dL Albumin (3.5-5.0) g/dL Globulin (1.7-4.1) g/dL Albumin/Globulin Ratio (1.0-2.8) Lipase (23-300) U/L Serum , Qual (Negative) Urine RBC 0-1/hpf D (0-5/HPF) Urine WBC 0-1/hpf (0-5/HPF) Ur Squamous Epith Cells 5-10 /hpf H (0-5/HPF) Urine Bacteria Few (2-10) H (None) Ur Culture Indicated? Cult not indicated Point of care testing: Urine Dip Bedside Urine Glucose Negative Bedside Urine Bilirubin - Negative Bedside Urine Ketone +/- 5 Urine Specific Elizabeth 1.010 Bedside Urine Occult Blood +/- Bedside Urine pH 6.0 Bedside Urine Protein - Negative Bedside Urine Urobilinogen - Negative Bedside Urine Nitrite - Negative Bedside Urine Leukocytes - Negative Esterase MDM Narrative Medical decision making narrative: Courtney 01/21/22: This is a 36-year-old female signed out to myself by Dr. Pierson, patient CBC and CMP is negative. Patient has had a toothache for prolonged period of time. She is also had epigastric pain which she states is worse when she eats. Sounds like ulcer or possible gastritis. Her CT shows a renal mass possible adrenal nodules which is unlikely cause of her pain but does require follow-up. Patient has surgery in the next month to have sounds like lysis of adhesions. Patient did not have urine as she has had hysterectomy. Patient is not having lower abdominal, flank pain. She noticed her urine was brownish today, shows blood, ketones but no clear infection. Discussed EGD would be helpful to evaluate for gastritis versus ulcer, needs follow-up as well as MR for the renal mass, adrenal nodules. Patient states she has follow-up. She is otherwise well-appearing and felt better after medications for her stomach. Discharge Plan Departure Patient Disposition: Home Clinical Impression: Mass of right kidney, Epigastric pain Instructions: DI for Epigastric Pain Activity Restrictions/Additional Instructions: Please follow-up for recheck of mass on your right kidney and adrenal nodules. Please call to set up follow-up in the next week. It is recommended that you follow-up for an MRI to further evaluate. Your urine does have some blood, this can be related to the mass in her kidney we will send it for micro and if there are signs of infection urine culture. If this is positive we will call you to initiate antibiotics but typically takes 2 days to result. This is an unlikely cause of your epigastric pain today, gastritis and/or ulcers can cause the pain that you are describing. EGD as an outpatient may be helpful your physician can help you schedule this. I would recommend taking Pepcid 40 mg daily for the next month, it may be helpful to take Carafate or a similar medication as well. Prescription sent to [facility] in [place]. Please return for new worsening pain, persistent vomiting, fevers, lightheadedness or passing out, black or bloody stools or other new or concerning changes. Prescriptions: New famotidine [Pepcid] 40 mg tablet 40 mg PO DAILY Qty: 30 0RF sucralfate [Carafate] 1 gram tablet 1 g PO QAC Qty: 20 0RF No Action ibuprofen 200 mg Tablet 200 mg PO PRN PRN (Reason: Pain (Scale Score 1-3)) tramadol 50 mg tablet 100 mg PO Q6H PRN (Reason: pain) Qty: 30 0RF Referrals: Allen Khoury MD [Primary Care Provider] - Visit Report Forms: Patient Portal/API
[2022-01-21] MEDS: SODIUM CHLORIDE 0.9% 1,000 ML 1000 ML IV (06:33)
[2022-01-21] MEDS: ONDANSETRON 4 MG/2 ML INJ IV (06:33)
[2022-01-21] MEDS: MORPHINE 4 MG/ML INJ IV (06:33)
[2022-01-21 08:41] VITALS: BP 106/70; PULSE 80; O2SAT 98
[2022-01-21 08:57] LABS: Pregnancy Test Serum,Qual Negative (Negative)
[2022-01-21 09:10] LABS: Bacteria Urine Few (2-10); Culture Indicated Urine Cult Not Indicated; RBC Urine 0-1/HPF (0-5/HPF); Squamous Epithelial Cell Urine 5-10 /HPF (0-5/HPF); WBC Urine 0-1/HPF (0-5/HPF)
== END 2022-01-21 08:41 | disposition home or self-care (01) ==
PROVIDERS: Emergency Medicine; Emergency Provider Emergency Medicine; PCP Obstetrics & Gynecology
DX: N28.89 Other specified disorders of kidney and ureter (principal); R10.13 Epigastric pain
CPT/HCPCS: 74177; 80053; 81003; 81015; 83690; 84703; 85025; 96361; 96374; 96375; 99283; 99284; J2270; J2405; Q9967

== ENCOUNTER → 2022-02-19 09:29 | Outpatient (CLI) | payer OTHER, SELFPAY ==
--- NOTE | 2022-02-19 | DI.RAD.S_ITS ---
PROCEDURE: FL BARIUM ENEMA INDICATIONS: Left lower quadrant abdominal swelling COMPARISON: [facility], CT, CT ABDOMEN PELVIS W CON, 01/21/2022, 6:37. FINDINGS: KUB: Preprocedural rn case management film demonstrates a normal bowel gas pattern. No suspicious abdominal calcifications. Visualized solid organ contours appear normal in size. No suspicious bony lesions. Colon: There is adequate opacification of the entire colon with Gastrografin contrast material due to provider peripheral. The appendix is partially visualized. No reflux into the terminal ileum could be achieved. No strictures or extrinsic mass effects are identified. A few diverticula are seen in the sigmoid colon. No colonic fistulae or perforations. Colon caliber appears normal. IMPRESSION: 1. Mild sigmoid diverticulosis. 2. Otherwise, normal single contrast Gastrografin enema. Approved by: Evelio Winter M.D. on 02/19/2022 at 12:54
== END ==
PROVIDERS: PCP Obstetrics & Gynecology Gynecologic Oncology; Referring Provider Obstetrics & Gynecology Gynecologic Oncology; Visit Provider Obstetrics & Gynecology Gynecologic Oncology
DX: K57.30 Diverticulosis of large intestine without perforation or abscess without bleeding (principal); R10.2 Pelvic and perineal pain; R19.04 Left lower quadrant abdominal swelling, mass and lump
CPT/HCPCS: 74270

== ENCOUNTER → 2022-03-19 08:51 | Outpatient (CLI) | payer OTHER, SELFPAY ==
--- NOTE | 2022-03-19 | DI.US.S_ITS ---
PROCEDURE: US PELVIC COMPLETE INDICATIONS: PELVIC AND PERINEAL PAIN TECHNIQUE: Real-time scanning was performed of the pelvic organs, with image documentation. Additional endovaginal scanning was necessary due to incomplete visualization of the adnexal and endometrial structures by transabdominal scanning. COMPARISON: [facility], CT, CT ABDOMEN PELVIS W CON, 01/21/2022, 6:37. [facility], US, US PELVIC COMPLETE, 07/08/2020, 10:10. FINDINGS: Uterus: Status post hysterectomy. Ovaries: The right ovary measures 3.9 x 2.7 x 2.7 cm, with a calculated ovarian volume of 14.7 cc. The left ovary measures 2.9 x 2.2 x 2.3 cm, with a calculated ovarian volume of 7.6 cc. Two complicated cysts with low-level internal echoes are seen in the right ovary measuring 1.7 x 1.6 x 1.5 cm and 2.0 x 1.6 x 1.6 cm. Less than 12 follicles can be seen in each ovary. No adnexal masses are seen. Other: No pathologic free abdominal or pelvic fluid. IMPRESSION: 1. Two small complicated cysts are seen in the right ovary with low-level internal echoes, most likely hemorrhagic in nature. Follow-up ultrasound could be performed in 6-12 weeks for re-evaluation. 2. Status post hysterectomy. We strive to produce accurate, complete, and clear reports of imaging services. To assist us in improving patient care, this report was composed using standard report templates and voice recognition software. Therefore, it may contain abnormal punctuation, insertions and/or omissions. Occasional wrong-word or sound-alike substitutions may occur. Though we review the report and make efforts to correct it, we do recommend that the report be read carefully in proper context to recognize any text inaccuracies. Approved by: Evelio Winter M.D. on 03/19/2022 at 11:11
== END ==
PROVIDERS: Referring Provider Obstetrics & Gynecology Gynecologic Oncology; Visit Provider Obstetrics & Gynecology Gynecologic Oncology
DX: N83.291 Other ovarian cyst, right side (principal); R10.2 Pelvic and perineal pain; R19.04 Left lower quadrant abdominal swelling, mass and lump; Z90.710 Acquired absence of both cervix and uterus
CPT/HCPCS: 76856; 93975

== ENCOUNTER 2023-02-26 06:57 | Emergency (ER) | payer OTHER, SELFPAY ==
[2023-02-26 07:18] VITALS: BP 136/89; PULSE 98; RESP 22; TEMP 36.9; O2SAT 99; BMI 36.0
[2023-02-26 07:32] VITALS: O2SAT 99
[2023-02-26 07:33] VITALS: BP 140/79; PULSE 88; O2SAT 99
--- NOTE | 2023-02-26 07:42 | PC.NURSE ---
This RN informed provider immediately that patient original vitals and suspected infection placed patient as possible sepsis risk per computer protocol.
[2023-02-26 07:51] LABS: Bacteria Urine Moderate (10-30); Culture Indicated Urine Specimen Cultured; RBC Urine 0-1/HPF (0-5/HPF); Squamous Epithelial Cell Urine 0-1 /HPF (0-5/HPF); WBC Urine 1-5/HPF (0-5/HPF)
[2023-02-26 08:00] VITALS: PULSE 72; RESP 18; O2SAT 98
[2023-02-26 08:01] VITALS: BP 115/68; PULSE 72; O2SAT 98
--- NOTE | 2023-02-26 08:01 | ED_ITS ---
HPI - Female Genitourinary General Chief complaint: Urogenital-Female Stated complaint: thinks kidney stone Time Seen by Provider: 02/26/23 07:41 Source: patient Mode of arrival: Ambulatory Limitations: no limitations History of Present Illness HPI Narrative: 37-year-old female smoker with 3 days of urinary symptoms. Patient states started with just blood and no pain, then she developed dysuria, urgency frequency and sense of incomplete emptying and states that now pain has moved upwards into her belly. She states she is some mild flank pain but fairly minimal more in the anterior abdomen. She denies fevers or chills or sweats. Denies any nausea or vomiting. Patient states normal bowel movements. No vaginal bleeding or discharge. Patient states she has had UTIs in the past. States no daily medications. Has had some sort of surgery in the past she states she does not have any vaginal bleeding anymore but she is not sure she had a hysterectomy or tubal ligation. Patient states she had ibuprofen at 2:00 a.m. she presents today as pain has become increasingly more uncomfortable. Denies any allergies to medications. Does smoke, alcohol 1 or 2 times weekly, no recreational drugs. Related Data Home Medications Medication Instructions Recorded Confirmed ibuprofen 200 mg tablet 200 mg PO PRN PRN Pain (Scale 05/01/21 06/11/21 Score 1-3) Previous Rx's Medication Instructions Recorded tramadol 50 mg tablet 100 mg (2 x 50 mg) PO Q6H PRN pain 05/01/21 #30 tabs famotidine 40 mg tablet (Pepcid) 40 mg PO DAILY #30 tabs 01/21/22 sucralfate 1 gram tablet (Carafate) 1 g PO QAC #20 tabs 01/21/22 ciprofloxacin HCl 500 mg tablet 500 mg PO Q12H #14 tabs 02/26/23 phenazopyridine 200 mg tablet 200 mg PO TID PRN pain 6 doses #6 02/26/23 (Pyridium) tabs Allergies Allergy/AdvReac Type Severity Reaction Status Date / Time No Known Drug Allergies Allergy Verified 02/26/23 07:24 Review of Systems Review of Systems ROS Unobtainable: All systems reviewed & are unremarkable except as noted in HPI and below Patient History Medical History Dysmenorrhea Severe dysmenorrhea Intramural uterine fibroid Menometrorrhagia Healthy adult Surgical History History of alcohol intake frequency: a few times a month Substance Use Type: does not use Exam Narrative Exam Narrative: GENERAL: Alert and oriented x three, female in moderate distress. HEENT: Head normocephalic, atraumatic, EOMI, pupils reactive, face symmetric, m oist mucous membranes NECK: Supple, full range of motion CARDIOVASCULAR: Regular rate and rhythm without murmurs, rubs or gallops. RESPIRATORY: Breath sounds equal bilaterally, no wheezes rales or rhonchi. ABDOMEN: Soft, nontender. Patient states feels improved with pressure to the abdomen. Normoactive bowel sounds all 4 quadrants. No guarding or rebound, rigidity, no mass : No CVA tenderness EXTREMITIES: Normal range of motion, no clubbing or edema. Neurovascularly intact NEUROLOGICAL: Cranial nerves II through XII grossly intact. Moving all extremities SKIN: Warm, dry, no petechiae, no rashes or lesions. Initial Vital Signs Initial Vital Signs: Vital Signs Temperature 98.4 F 02/26/23 07:18 Pulse Rate 98 H 02/26/23 07:18 Respiratory Rate 22 02/26/23 07:18 Blood Pressure 136/89 02/26/23 07:18 Pulse Oximetry 99 02/26/23 07:18 Oxygen Delivery Method Room Air 02/26/23 07:18 Course Orders Ordered: ED Orders 02/26/23 07:28 Urine Culture Stat Urine Microscopic Stat Discontinued Medications Ciprofloxacin (Ciprofloxacin 250 Mg Tablet) 500 mg PO NOW ONE Stop: 02/26/23 08:11 Last Admin: 02/26/23 08:17 Dose: 500 mg Documented By: RB Ketorolac Tromethamine (Ketorolac 30 Mg/Ml Vial) 30 mg IM NOW ONE Stop: 02/26/23 08:11 Last Admin: 02/26/23 08:17 Dose: 30 mg Documented By: RB Ondansetron HCl (Ondansetron 4 Mg Odt) 4 mg SL NOW PRN PRN Reason: Nausea And Vomiting Ondansetron HCl (Ondansetron 4 Mg/2 Ml Inj) 4 mg IV NOW PRN PRN Reason: Nausea And Vomiting Phenazopyridine HCl (Phenazopyridine 100 Mg Tablet) 200 mg PO NOW ONE Stop: 02/26/23 08:11 Last Admin: 02/26/23 08:17 Dose: 200 mg Documented By: RB Vital Signs Vital signs: Vital Signs - 8 hr 02/26/23 07:18 02/26/23 07:32 02/26/23 07:33 Temperature 98.4 F Pulse Rate 98 H Respiratory Rate 22 Blood Pressure 136/89 140/79 Pulse Oximetry 99 99 Oxygen Delivery Method Room Air 02/26/23 07:33 02/26/23 08:00 02/26/23 08:01 Temperature Pulse Rate 88 72 Respiratory Rate 18 Blood Pressure 115/68 Pulse Oximetry 99 98 Oxygen Delivery Method 02/26/23 08:01 Temperature Pulse Rate 72 Respiratory Rate Blood Pressure Pulse Oximetry 98 Oxygen Delivery Method MDM - Female Genitourinary Lab Data Labs: Lab Results 02/26/23 Range/Units 07:28 Urine RBC 0-1/hpf (0-5/HPF) Urine WBC 1-5/hpf (0-5/HPF) Ur Squamous Epith Cells 0-1 /hpf (0-5/HPF) Urine Bacteria Moderate (10-30) H (None) Ur Culture Indicated? Specimen cultured Point of Care Testing Test Results Negative Urine Dip Bedside Urine Glucose Negative Bedside Urine Bilirubin - Negative Bedside Urine Ketone - Negative Urine Specific [place] 1.010 Bedside Urine Occult Blood +++ Bedside Urine pH 6.0 Bedside Urine Protein - Negative Bedside Urine Urobilinogen - Negative Bedside Urine Nitrite - Negative Bedside Urine Leukocytes +++ 500 Esterase MDM Narrative Medical decision making narrative: 37-year-old female with hematuria followed by UTI symptoms with no bilateral flank pain. Suspect she has UTI but not quite pyelonephritis. She does appear uncomfortable was given initial dose of antibiotic here, Toradol and Pyridium. Patient negative test, urine showed blood and leuks on dip, 0-1 RBCs, 1-5 WBCs 0-1 squamous and 10-30 bacteria was sent for culture. Discussed return precautions. Discharge Plan Departure Patient Disposition: Home Clinical Impression: UTI (urinary tract infection) Instructions: DI for Urinary Tract Infection (UTI) Activity Restrictions/Additional Instructions: Follow-up in the next week if your symptoms have not completely resolved. Take antibiotics until completed. Take Pyridium 1 tablet every 8 hours as needed for bladder spasm. This medication will make your urine bright orange. You may take Tylenol up to a 1000 mg every 6 hours and/or ibuprofen up to 600 mg every 6 hours. Prescription sent to [facility] in [place]. Please return for fevers, worsening abdominal back or flank pain, persistent vomiting, inability urinate, black or bloody bowel movements or other new or concerning changes. Prescriptions: New phenazopyridine [Pyridium] 200 mg tablet 200 mg PO TID PRN (Reason: pain) Qty: 6 0RF ciprofloxacin HCl 500 mg tablet 500 mg PO Q12H Qty: 14 0RF No Action ibuprofen 200 mg Tablet 200 mg PO PRN PRN (Reason: Pain (Scale Score 1-3)) tramadol 50 mg tablet 100 mg PO Q6H PRN (Reason: pain) Qty: 30 0RF famotidine [Pepcid] 40 mg tablet 40 mg PO DAILY Qty: 30 0RF sucralfate [Carafate] 1 gram tablet 1 g PO QAC Qty: 20 0RF Referrals: Miscellaneous,Doctor, MD [Primary Care Provider] - Stand Alone Forms: Patient Portal/API
[2023-02-26] MEDS: PHENAZOPYRIDINE 100 MG TABLET 200 MG PO (08:17)
[2023-02-26] MEDS: KETOROLAC 30 MG/ML VIAL IM (08:17)
[2023-02-26] MEDS: CIPROFLOXACIN 250 MG TABLET 500 MG PO (08:17)
== END 2023-02-26 08:26 | disposition home or self-care (01) ==
PROVIDERS: Emergency Provider Emergency Medicine
DX: N39.0 Urinary tract infection, site not specified (principal)
CPT/HCPCS: 81003; 81015; 81025; 87086; 96372; 99283; J1885

== ENCOUNTER 2024-04-21 05:11 | Emergency (ER) | payer OTHER, SELFPAY ==
[2024-04-21 05:26] VITALS: BP 128/77; PULSE 72; RESP 13; TEMP 36.6; O2SAT 98; BMI 36.0
[2024-04-21 05:43] LABS: Appearance Urine UA CLOUDY; Bilirubin Urine UA NEGATIVE (NEGATIVE); Color Urine UA BROWN; Glucose Urine UA NEGATIVE (Negative); Ketones Urine UA NEGATIVE (NEGATIVE); Leukocyte Esterase Urine UA NEGATIVE (NEGATIVE); Nitrite Urine UA POSITIVE (Negative); Occult Blood Urine UA 3+ (Negative); Protein Urine UA 2+ (Negative); Specific Gravity Urine UA >=1.030 (1.000-1.035); Urobilinogen Urine UA 0.2 E.U./dL (0.2)
[2024-04-21 05:48] LABS: Urine Volume 10mL (spun); pH Urine UA 5.5 (4.5-8.0)
[2024-04-21 05:49] LABS: Bacteria Urine Many (>30); Mucus Urine 1+ (Negative); RBC Urine 30-100/HPF (0-5/HPF); Squamous Epithelial Cell Urine 0-1 /HPF (0-5/HPF); WBC Urine 1-5/HPF (0-5/HPF)
[2024-04-21 05:50] LABS: Culture Indicated Urine Specimen Cultured
--- NOTE | 2024-04-21 05:55 | ED.FEMALEGU ---
HPI - Female Genitourinary General Chief complaint: Urogenital-Female Stated complaint: Urinating blood Time Seen by Provider: 04/21/24 05:36 Source: patient Mode of arrival: Ambulatory History of Present Illness HPI Narrative: 38-year-old female no reported medical issues presents with complaint of urinating blood. States no fevers no chills no chest pain shortness of breath, no nausea or vomiting. No dysuria, urgency or frequency. Woke up at 2:00 a.m. this morning to urinate because she goes to work at 3:00 a.m. noted she had blood in her urine. Has not noticed any vaginal bleeding. No issues with bowel movements. Has not had this issue before. States no daily medications, denies any major surgeries. Former smoker, occasional alcohol, no recreational drugs. Has not had frequent UTIs in the past. Related Data Home Medications Medication Instructions Recorded Confirmed ibuprofen 200 mg tablet 200 mg PO PRN PRN Pain (Scale 05/01/21 06/11/21 Score 1-3) Previous Rx's Medication Instructions Recorded tramadol 50 mg tablet 100 mg (2 x 50 mg) PO Q6H PRN pain 05/01/21 #30 tabs famotidine 40 mg tablet (Pepcid) 40 mg PO DAILY #30 tabs 01/21/22 sucralfate 1 gram tablet (Carafate) 1 g PO QAC #20 tabs 01/21/22 ciprofloxacin HCl 500 mg tablet 500 mg PO Q12H #14 tabs 02/26/23 phenazopyridine 200 mg tablet 200 mg PO TID PRN pain 6 doses #6 02/26/23 (Pyridium) tabs cephalexin 500 mg capsule 500 mg PO TID 5 days #15 caps 04/21/24 Allergies Allergy/AdvReac Type Severity Reaction Status Date / Time No Known Drug Allergies Allergy Verified 02/26/23 07:24 Review of Systems Review of Systems ROS Unobtainable: All systems reviewed & are unremarkable except as noted in HPI and below Patient History Medical History Dysmenorrhea Severe dysmenorrhea Intramural uterine fibroid Menometrorrhagia Healthy adult Surgical History History of Exam Narrative Exam Narrative: GENERAL: Alert and oriented x three, well-appearing female in no acute distress HEENT: Head normocephalic, atraumatic, EOMI, pupils reactive, face symmetric, moist mucous membranes NECK: Supple, full range of motion CARDIOVASCULAR: Regular rate and rhythm without murmurs, rubs or gallops. RESPIRATORY: Breath sounds equal bilaterally, no wheezes rales or rhonchi. ABDOMEN: Soft, nontender. Normoactive bowel sounds all 4 quadrants. No guarding or rebound, rigidity, no mass : No CVA tenderness EXTREMITIES: Normal range of motion, no clubbing or edema. Neurovascularly intact NEUROLOGICAL: Cranial nerves II through XII grossly intact. Moving all extremities SKIN: Warm, dry, no petechiae, no rashes or lesions. Initial Vital Signs Initial Vital Signs: Vital Signs Temperature 98 F 04/21/24 05:26 Pulse Rate 72 04/21/24 05:26 Respiratory Rate 13 04/21/24 05:26 Blood Pressure 128/77 04/21/24 05:26 Pulse Oximetry 98 04/21/24 05:26 Oxygen Delivery Method Room Air 04/21/24 05:26 Course Orders Ordered: ED Orders 04/21/24 05:35 UA Complete [Urinalysis and Microscopic] Stat Urine Culture Stat Discontinued Medications Cephalexin HCl (Cephalexin 250 Mg Capsule) 500 mg PO NOW ONE Stop: 04/21/24 06:05 Last Admin: 04/21/24 06:09 Dose: 500 mg Documented By: MR Vital Signs Vital signs: Vital Signs - 8 hr 04/21/24 05:26 Temperature 98 F Pulse Rate 72 Respiratory Rate 13 Blood Pressure 128/77 Pulse Oximetry 98 Oxygen Delivery Method Room Air MDM - Female Genitourinary Lab Data Labs: Lab Results 04/21/24 Range/Units 05:35 Urine Color Brown Urine Appearance Cloudy Urine pH 5.5 (4.5-8.0) Ur Specific [place] >=1.030 H (1.000-1.035) Urine Protein 2+ H (Negative) Urine Glucose (UA) Negative (Negative) g/dL Urine Ketones Negative (NEGATIVE) Urine Occult Blood 3+ H (Negative) Urine Nitrate Positive H (Negative) Urine Bilirubin Negative (NEGATIVE) Urine Urobilinogen 0.2 (0.2) E.U./dL Ur Leukocyte Esterase Negative (NEGATIVE) Urine RBC 30-100/hpf H (0-5/HPF) Urine WBC 1-5/hpf (0-5/HPF) Ur Squamous Epith Cells 0-1 /hpf (0-5/HPF) Urine Bacteria Many (>30) H (None) Urine Mucus 1+ H (Negative) Ur Culture Indicated? Specimen cultured Vol Urine Centrifuged 10ml (spun) MDM Narrative Medical decision making narrative: Urines 3+ blood nitrate positive 30-100 RBCs 1-5 WBCs 1 squamous many bacteria was sent for culture. Patient does have prior urine culture in 2020 was pansensitive at that time. Patient is not having any urinary symptoms but urine appears to be clearly infected. We will start oral antibiotic patient is to follow up if symptoms have not resolved, discussed return precautions. Discharge Plan Departure Patient Disposition: Home Clinical Impression: UTI (urinary tract infection) Instructions: DI for Urinary Tract Infection (UTI) Activity Restrictions/Additional Instructions: Follow up for recheck if you are continuing to have any blood in your urine after you finish antibiotics. If you noticed some dysuria or irritation with urination you can take azo over the counter. This medication can make your urine bright orange but helps with bladder spasm and irritation. Prescription for antibiotics was sent to [facility] in [place]. Please return for fevers, new abdominal back or flank pain, vomiting, difficulty or inability to urinate or other new or concerning changes. Prescriptions: New cephalexin 500 mg capsule 500 mg PO TID 5 Days Qty: 15 0RF No Action ibuprofen 200 mg Tablet 200 mg PO PRN PRN (Reason: Pain (Scale Score 1-3)) tramadol 50 mg tablet 100 mg PO Q6H PRN (Reason: pain) Qty: 30 0RF phenazopyridine [Pyridium] 200 mg tablet 200 mg PO TID PRN (Reason: pain) Qty: 6 0RF ciprofloxacin HCl 500 mg tablet 500 mg PO Q12H Qty: 14 0RF famotidine [Pepcid] 40 mg tablet 40 mg PO DAILY Qty: 30 0RF sucralfate [Carafate] 1 gram tablet 1 g PO QAC Qty: 20 0RF Stand Alone Forms: Patient Portal/API/Survey
[2024-04-21] MEDS: cephALEXin 250 MG CAPSULE 500 MG PO (06:09)
== END 2024-04-21 06:14 | disposition home or self-care (01) ==
PROVIDERS: Emergency Provider Emergency Medicine
DX: N39.0 Urinary tract infection, site not specified (principal)
CPT/HCPCS: 81001; 87086; 99283